=== PATIENT | male | born 1970 | race Hispanic/Latino ===

== ENCOUNTER 2019-12-31 16:11 | Outpatient (CLI) | payer OTHER ==
--- NOTE | 2019-12-31 16:45 | RAD ---
LUMBAR SPINE THREE VIEWS: History: Low back pain for two years. No evidence for acute trauma. FINDINGS: Disc osteophytosis changes, particularly at L4-5 posteriorly. Evidence for bilateral facet arthrosis. No acute fracture or dislocation. 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 If the patient has any radicular or myelopat hic symptoms, consider follow up MRI study. POS: RRE
== END 2019-12-31 16:12 | disposition home or self-care (01) ==
LOC: BICRAD 16:11
PROVIDERS: ATTEND Family Medicine
DX: M54.5 Low back pain (principal); M47.816 Spondylosis without myelopathy or radiculopathy, lumbar region
CPT/HCPCS: 72100

== ENCOUNTER 2020-01-23 10:41 | Outpatient (CLI) | payer OTHER ==
--- NOTE | 2020-01-23 11:47 | MRI ---
MR the lumbar spine without contrast: 01/23/2020 History: Low back pain for 2 years COMPARISON: None. TECHNIQUE: Multiplanar multisequence MR images were obtained of lumbar spine without IV contrast FINDINGS: On the basis of 5 lumbar type vertebral bodies, conus medullaris terminates at [id number] level. Sagittal STIR imaging demonstrates no focal area of osseous marrow edema. T12-L1:Unremarkable L1-2:Unremarkable L2-3:Minimal disc bulge and very small foraminal disc protrusion on the left with no significant cent ral canal or neural foraminal stenosis L3-4:No central canal or neural foraminal stenosis L4-5:Partial disc desiccation. Mild bilateral facet hypertrophy. No significant central canal or neur al foraminal stenosis. L5-S1:There is disc space narrowing and partial disc desiccation. There is disc bulge with a superimp osed central annular tear and small central disc protrusion. No associated central canal stenosis. Mild bilateral facet hypertrophy. Small foraminal disc protrusion on the right with mild right neural foraminal stenosis. No significant left neural foraminal stenosis. Image retroperitoneal structures demonstrateno acute findings. The right kidney is nonvisualized whic h may signify surgical absence or congenital absence.. IMPRESSION: Nonvisualization of the right kidney. Lumbar spine degenerative change as detailed above.
== END 2020-01-23 10:42 | disposition home or self-care (01) ==
LOC: TBSIIMAG 10:41
PROVIDERS: ATTEND Family Medicine
DX: M54.5 Low back pain (principal); M47.816 Spondylosis without myelopathy or radiculopathy, lumbar region
CPT/HCPCS: 72148

== ENCOUNTER 2020-01-31 09:17 | Outpatient (CLI) | payer OTHER ==
--- NOTE | 2020-01-31 10:51 | RAD ---
LEFT KNEE 4 VIEWS: HISTORY: Acute pain left knee. IMPRESSION: No fracture, dislocation, or other significant acute osseous process. POS: OFF
== END 2020-01-31 09:18 | disposition home or self-care (01) ==
LOC: BICRAD 09:17
PROVIDERS: ATTEND Physician Assistant
DX: M25.562 Pain in left knee (principal)

== ENCOUNTER 2020-02-18 08:59 | Outpatient (CLI) | payer OTHER ==
--- NOTE | 2020-02-18 09:38 | CT ---
CT of abdomen and pelvis: 02/18/2020 COMPARISON: None HISTORY: Prior right nephrectomy TECHNIQUE: Axial CT imaging at 5 mm intervals from lung bases through pubic symphysis without contras t. Coronal reformatted imaging obtained. FINDINGS: Lack of contrast media limits assessment of the viscera, bowel, vascular structures, and fo r lymphadenopathy. Imaged lung bases demonstrate no acute findings. The liver dome is not fully visualized on this exam. Limited assessment of the spleen, imaged hepatic parenchyma, gallbladder, pancreas, and adrenal glands unremarkable. The patient is status post right nephrectomy. Limited noncontrast enhanced appearance of the left kidney appears unremarkable. Limited evaluation o f the bowel without oral contrast media demonstrates no evidence for inflammatory change or obstruction. The appendix is unremarkable. There is a right spigelian hernia measuring 5.9 x 3.2 cm containing multiple nondilated loops of smal l bowel. There is minimal stranding of the fat deep to this hernia within the right lower quadrant which could signify minimal associated inflammatory change in the proper clinical setting. There is n o evidence for associated bowel obstruction. There is a retroaortic left renal vein. There is a very small fat-containing umbilical hernia. The osseous structures demonstrate no acute findings. IMPRESSION: Status post right nephrectomy. No acute findings are apparent. Right-sided spigelian sonali ia with minimal stranding of the fat within the peritoneal cavity just deep to this hernia..
--- NOTE | 2020-02-18 10:11 | MRI ---
MRI Lower Ext Jt Lt WO Con History: Acute pain of left knee Comparison: Radiograph January 2020 Findings: Medial meniscus: Undersurface flap tear body and posterior horn medial meniscus with minima l gutter displacement of the flap fragment. Horizontal component extends into the posterior horn and root with a small paraganglion pseudocyst measuring up to 12 mm at the root. Lateral meniscus: Intact The ACL, PCL, MCL and LCL are all intact. Extensor mechanism: Quadriceps tendon, patella and patellar tendon are intact. Mild proximal patellar tendinosis. Cartilage: Patellofemoral compartment: Intact Medial compartment: Minimal chondral fraying. No high-grade defect. Lateral compartment: Intact Bones: Very subtle stress related fracture of the anterolateral tibial rim with developing small oste ophyte. Impression: Undersurface flap tear body and posterior horn medial meniscus with minimal gutter extrusion of the f lap fragment although there is mild loss of hoop stress with very subtle stress related anterolateral tibial rim submeniscal fracture. Small associated 12 mm pseudocyst near the posterior h orn.
--- NOTE | 2020-02-18 10:20 | RAD ---
2 view chest: [02/18/2020] Comparison:None available HISTORY: History of right-sided renal cell carcinoma status post nephrectomy FINDINGS: Heart and mediastinal contours are grossly unremarkable. No pneumothorax or pleural fluid. No focal consolidation or alveolar edema. IMPRESSION: No acute findings.
== END 2020-02-18 09:00 | disposition home or self-care (01) ==
LOC: BICMRI 08:59
PROVIDERS: ATTEND Physician Assistant
DX: C64.1 Malignant neoplasm of right kidney, except renal pelvis (principal); M25.562 Pain in left knee; K43.9 Ventral hernia without obstruction or gangrene; S83.242A Other tear of medial meniscus, current injury, left knee, initial encounter; Z90.5 Acquired absence of kidney
CPT/HCPCS: 71046; 74176

== ENCOUNTER 2021-01-21 15:25 | Outpatient (CLI) | payer BC | END 2021-01-21 15:26 | disposition home or self-care (01) | LOC: BICULT 15:25 | PROVIDERS: ATTEND Urology | DX: C64.1 Malignant neoplasm of right kidney, except renal pelvis (principal); Z90.5 Acquired absence of kidney | CPT/HCPCS: 76775 ==

== ENCOUNTER 2021-01-30 12:11 | Outpatient (CLI) | payer BC | END 2021-01-30 12:12 | disposition home or self-care (01) | LOC: BICRAD 12:11 | PROVIDERS: ATTEND Urology | DX: C64.1 Malignant neoplasm of right kidney, except renal pelvis (principal) | CPT/HCPCS: 71046 ==

== ENCOUNTER 2021-03-27 13:02 | Emergency (ER) | payer BC, OTHER ==
[2021-03-27 13:53] LABS: #Basophils 0.1 thou/uL (0.0-0.2); #Eosinphils 0.2 thou/uL (0.0-0.7); #Lymphocytes 1.9 thou/uL (1.20-3.40); #Monocytes 0.7 thou/uL (0.11-0.59); #Neutrophils 3.9 thou/uL (1.40-6.50); %Basophils 1.1 % (0.0-1.0); %Eosinophils 2.9 % (0.0-10.0); %Lymphocytes 28.2 % (21.0-51.0); %Monocytes 10.3 % (0.0-10.0); %Neutrophils 57.5 % (42.0-75.0); Hemoglobin 11.6 g/dL (14.0-18.0); Mean Corpuscular HGB CONC 32.4 g/dL (32.0-36.0); Mean Corpuscular Hemoglobin 25.9 pg (27.0-31.0); Mean Corpuscular Volume 79.9 fL (78.0-98.0); Mean Platelet Volume 7.1 fL (7.4-10.4); Platelet Count 279 thou/uL (130-400); RBC Distribution Width 15.6 % (11.5-14.5); Red Blood Cell (RBC) Count 4.48 mill/uL (4.70-6.10); White Blood Cell (WBC) Count 6.8 thou/uL (4.8-10.8)
[2021-03-27 14:21] LABS: ALT (SGPT) 14 U/L (8-55); AST (SGOT) 11 U/L (5-34); Albumin 3.9 g/dL (3.5-5.0); Alkaline Phosphatase 88 U/L (40-110); Anion Gap 12 mmol/L (10-20); BUN (Urea Nitrogen) 24 mg/dL (8.9-20.6); Bilirubin, Total 0.2 mg/dL (0.2-1.2); CK (CPK) 144 U/L (30-200); Calc. Creatinine Clearance 0 mL/min (70-130); Calcium 8.8 mg/dL (7.8-10.44); Carbon Dioxide 23 mmol/L (22-29); Chloride 107 mmol/L (98-107); Globulin 2.8 g/dL (2.4-3.5); Glucose 102 mg/dL (70-105); Lipase 83 U/L (8-78); Potassium 4.1 mmol/L (3.5-5.1); Protein, Total 6.7 g/dL (6.0-8.3); Sodium 138 mmol/L (136-145)
== END 2021-03-27 14:58 | disposition home or self-care (01) ==
LOC: ERS 13:02
DX: I95.9 Hypotension, unspecified (principal); T44.7X5A Adverse effect of beta-adrenoreceptor antagonists, initial encounter; I10 Essential (primary) hypertension; Z79.82 Long term (current) use of aspirin; Z79.899 Other long term (current) drug therapy
CPT/HCPCS: 36415; 71045; 80053; 82550; 83690; 84484; 85025; 93005